=== PATIENT | male | born 1935 | race Caucasian/White ===

== ENCOUNTER 2016-11-10 02:27 | Inpatient (IN) ==
[2016-11-10] MEDS ORDERED: LR 1,000 ML ONE (13:03)
[2016-11-10] MEDS ORDERED: PEPCID ONE (13:03)
[2016-11-10] MEDS ORDERED: REGLAN ONE (13:03)
[2016-11-10] MEDS ORDERED: DIPRIVAN 1% ONE (15:16)
[2016-11-10] MEDS ORDERED: XYLOCAINE-MPF 2% ONE (15:17)
[2016-11-10] MEDS ORDERED: SENSORCAINE 0.5%-EPI 1:200,000 ONE (15:38)
[2016-11-10] MEDS ORDERED: NEOSPORIN G.U. IRRIGANT ONE (15:38)
[2016-11-10] MEDS ORDERED: MORPHINE IV PRN (16:11)
[2016-11-10] MEDS ORDERED: VANCOMYCIN 1 GM/NS 1 GM/250 ML IVPB IV SCH ×2 (16:15→19:00)
[2016-11-10] MEDS ORDERED: ZOFRAN ONE (17:00)
[2016-11-10] MEDS ORDERED: NS 1,000 ML ONE (17:38)
[2016-11-10] MEDS: MORPHINE ONE ×3 (17:40→17:53)
--- NOTE | 2016-11-10 18:22 | OPERATIVE NOTE ---
PROCEDURE DATE: 11/10/2016 PREOPERATIVE DIAGNOSIS: Synovitis with possible infection right total knee. POSTOPERATIVE DIAGNOSIS: Synovitis with possible infection right total knee with arthroscopic lavage and drain placement right total knee. SURGEON: Dread Barnes MD. CONTACT CENTER ENGINEER: Dru Kim RN. ANESTHESIA: General. COMPLICATION: None. PROCEDURE IN DETAIL: This 80-year-old male presents for arthroscopic lavage of the right knee. Risks, benefits and no guarantees were discussed, and he is willing to proceed. He was taken to the operating room and satisfactory anesthesia obtained. The right knee was prepped and draped in usual sterile fashion. A time-out was taken to confirm operative site, procedure, and patient. The leg was wrapped with an Esmarch up to the knee and tourniquet inflated to 350 mmHg. A superior medial inflow portal was established in the suprapatellar pouch through a stab wound and a cannula introduced. A yellowish type fluid was expressed from the joint and this was cultured for aerobic and anaerobic cultures. Standard anterolateral and anteromedial portals were established and arthroscopic lavage of the joint undertaken. The arthroscope was introduced and the total joint replacement was noted to be fully intact without any polyethylene wear. There is mild synovitis along the gutters and suprapatellar pouch. An arthroscopic shaver was used to debride the synovitis to the stable joint capsule. 9 L of irrigant run through the knee after the arthroscopic portion through the inflow and outflow cannulas while the knee was cycled for several range of motion cycles. Afterwards, Hemovac drains were placed through 2 of the portals and the arthroscopic portals closed with 3-0 nylon. The surgical sites were infiltrated with Marcaine for pain control. Tourniquet was released with good return of capillary blood flow and sterile dressings applied. The patient was then recovered from anesthesia and transferred to the recovery room in stable condition. No intraoperative complications were noted. Instrument count and sponge count was correct at the time of closure. cc: Titus Barnes MD
[2016-11-10] MEDS ORDERED: CUBICIN 600 MG in NS 100 ML IV SCH (18:45)
--- NOTE | 2016-11-10 19:44 | CONSULTATION ---
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 RECOMMENDATION: The patient is a little bit hard of hearing. Therefore, I am going to discontinue vancomycin and put the patient on daptomycin. The patient also is on Crestor and I am going to discontinue that because it and daptomycin can interact and cause an increased risk of muscle toxicity. I have ordered a CBC and BMP for tomorrow morning as well. Once we have determined that the patient will definitely need IV antibiotics, I will have a PICC installed. DISCUSSION: The patient had a right total knee arthroplasty performed in 2001. Two years ago, he started having increasing pain and swelling in the knee. He was admitted to surgery today and Dr. Barnes performed a lavage of the knee and put a drain in. Cultures have been obtained but the results are pending. REVIEW OF SYSTEMS: Eyes and ears: The patient's vision is okay. According to the patient's he has decreased hearing. Neck: No meningismus. Respiratory: No cough or shortness of breath. Cardiovascular: No chest pain or palpitations. GI: No nausea, vomiting, or diarrhea. : No dysuria or flank pain. Bones, joints, muscles: Patient did have pain in his knee, which necessitated having a total knee arthroplasty in 2011. Neurologic: No seizures. No motor or sensory deficit. Integument: No rash. PAST MEDICAL HISTORY: Previous hospitalizations and operations: He has had a right total knee arthroplasty in 2011 as mentioned above. He has also had a hernia repair, appendectomy, carotid endarterectomy and placement of coronary artery stents. Medical Diseases: Positive for peripheral vascular disease, diabetes mellitus, hypertension, skin cancer, osteoarthritis and hypothyroidism. Hyperlipidemia and gastroesophageal reflux disease. Infectious disease history: Positive for pneumonia and UTI. FAMILY HISTORY: Positive for hypertension and cancer. SOCIAL HISTORY: Patient lives in [place] with his . He is retired. They do not have any pets at home. ALLERGIES: His chart lists an allergy to penicillin. The patient told me that over 40 years ago, he received penicillin and had a rash. SUBSTANCE USE: The patient has stopped smoking cigarettes in 1990. He does not drink alcoholic beverages or abuse drugs. MEDICATIONS: Home medications include the following: Synthroid, fish oil, ferrous sulfate, vitamin B12, Norvasc, Prilosec, labetalol, Isordil, hydralazine, Neurontin, furosemide, Crestor, aspirin and multivitamins. PHYSICAL EXAMINATION: Vital Signs: Temperature is 98, pulse 74, respirations 18, blood pressure 160/67. The patient weighs 220 pounds. General: This is an obese, elderly male who is in no acute distress. HEENT: He can hear my spoken words and see near objects. No drainage noted from the nose or ears. The patient's tongue did not have any white coating on it. Neck: No meningismus. Lungs: Clear to auscultation. Cardiovascular: Regular heart rate. Peripheral pulses were palpable in the left leg and both arms. The right leg had a large dressing around it. Abdomen: Soft and nontender. Extremities: As mentioned above, the patient has a large dressing on the leg, but dressing is intact. Neurologic: Patient is alert. He can move his extremities. There is no tremor. His sensation is intact to touch. His memory, as regarding his medical history seemed to be intact as well. Integument: No rash noted. Thank you for the consult. cc: MD Titus Westfall MD
[2016-11-10] MEDS: NORCO-10 PO PRN ×2 (20:34→22:58)
[2016-11-10] MEDS: TRANDATE PO SCH (20:34)
[2016-11-10] MEDS: NEURONTIN PO SCH (20:34)
[2016-11-10] MEDS: PRILOSEC PO SCH (20:35)
[2016-11-10] MEDS: ISORDIL PO SCH (20:35)
[2016-11-10] MEDS: PERIDEX MT SCH (20:36)
[2016-11-10] MEDS: SODIUM BICARBONATE PO SCH (20:36)
[2016-11-10] MEDS ORDERED: CRESTOR PO SCH (21:00)
[2016-11-11] MEDS: APRESOLINE PO SCH ×4 (00:25→17:25)
[2016-11-11] MEDS: NS 1,000 ML IV SCH ×4 (01:00→21:31)
[2016-11-11] MEDS: NORCO-10 PO PRN ×2 (03:06→21:32)
[2016-11-11 05:37] LABS: MANUAL DIFF NEEDED? NO
[2016-11-11 05:42] LABS: BASO% 0.4 % (0.0-0.8); EOS% 2.8 % (0.0-10.0); HEMATOCRIT 30.3 % (42.0-52.0); HEMOGLOBIN 9.5 g/dL (14.0-18.0); IMM GRAN# 0.02 X1000 (0.0-0.04); IMM GRAN% 0.3 % (0.0-0.5); LYMPH# 1.45 X1000 (1.2-3.4); MCH 31.7 PG (27-31); MCHC 31.4 g/dL (33-37); MONO# 0.77 X1000 (0.11-0.59); MONO% 10.6 % (1.7-9.3); MPV 8.8 FL (7.4-10.4); NEUT% 65.9 % (42.2-75.2); PLT 439 X1000 (130-400)
[2016-11-11] MEDS ORDERED: XARELTO PO SCH (06:00)
[2016-11-11 06:08] LABS: CALCIUM 8.6 mg/dL (8.8-10.2); POTASSIUM 4.8 mmol/L (3.5-5.1)
[2016-11-11] MEDS: PRILOSEC PO SCH ×2 (06:24→21:33)
[2016-11-11] MEDS: SYNTHROID PO SCH (06:50)
--- NOTE | 2016-11-11 08:03 | PROGRESS NOTE ---
DATE: 11/11/2016 SUBJECTIVE: Mr. Lake is seen today for postop care status post laparoscopic lavage of his infected right total knee. OBJECTIVE: The cultures continue to show no organisms but do show white cells. ASSESSMENT AND PLAN: Dr. Barahona has been consulted for antibiotic and infectious disease treatment. Will plan on keeping him in the hospital today to establish a home IV port and to leave the drains in place. Will plan on discharge tomorrow and removal of the drains at that time. Presently, he is afebrile with stable vital signs. His bandage is clean and dry. There are no signs of DVT or other complication. cc: Titus Barnes MD
[2016-11-11] MEDS: VITAMIN B-12 SL SCH (10:04)
[2016-11-11] MEDS: CENTRUM SILVER PO SCH (10:04)
[2016-11-11] MEDS: LASIX PO SCH (10:04)
[2016-11-11] MEDS: FISH OIL CONCENTRATE PO SCH (10:04)
[2016-11-11] MEDS: ISORDIL PO SCH ×2 (10:04→21:33)
[2016-11-11] MEDS: NEURONTIN PO SCH ×3 (10:04→17:25)
[2016-11-11] MEDS: SODIUM BICARBONATE PO SCH ×2 (10:04→21:31)
[2016-11-11] MEDS: ASPIRIN PO SCH (10:04)
[2016-11-11] MEDS: NORVASC PO SCH (10:05)
[2016-11-11] MEDS: TRANDATE PO SCH ×2 (10:05→21:31)
[2016-11-11] MEDS: FERROUS SULFATE PO SCH (10:05)
[2016-11-11] MEDS: PERIDEX MT SCH ×2 (10:09→21:33)
[2016-11-11] MEDS ORDERED: MAXIPIME 2 GM/NS 2 GM/100 ML IVPB IV SCH (16:00)
--- NOTE | 2016-11-11 16:02 | PROGRESS NOTE ---
DATE: 11/11/2016 PRESENT ILLNESS: The patient is status post lavage of an infected right total knee arthroplasty. MEDICATIONS: The patient is on daptomycin and I have just ordered for today cefepime in addition. PHYSICAL EXAMINATION: Vital Signs: Temperature 98.6 degrees, pulse 61, respirations 18, blood pressure 130/59. General: This is a somewhat ill-appearing, elderly male. He is in no acute distress. Ear, nose, throat: Patient has decreased hearing. Lungs: Clear to auscultation. Cardiovascular: Heart rate is regular. Abdomen: Soft and not tender. Extremities: The patient's right foot has a large dressing around it. The dressing is intact. LAB AND X-RAY: Creatinine is 2.6. GFR is 24. Thus far the knee culture is sterile. The fluid from the patient's knee on Gram stain showed white cells but no bacteria and as mentioned above culture is negative. Dr. Barnes told me that approximately a week ago he el synovial fluid from the patient's knee and there was an approximate white cell count of 50,000. ASSESSMENT AND PLAN: Dr. Barnes and I have discussed with the patient and his the fact that we feel that the patient's knee is infected and should be treated with IV antibiotics for 6 weeks even if the culture remains negative. During the operative report Dr. Barnes noticed that there was some purulence. Also clinically it appeared that the patient has an infected knee. I have requested that a Avila catheter be placed rather than a PICC because the patient has end-stage renal disease. Also, I put in a consultation for Dr. Nash to put in the patient's Avila catheter. I have also put in a consultation for [facility] to supply the patient's home IV antibiotic. I told the patient and his that if they do not have good coverage for the antibiotics that Mr. Lake will be able to come to the outpatient clinic daily for his antibiotics. COMORBIDITIES: He has decreased hearing. He also has end-stage renal disease. He also has diabetes mellitus and peripheral vascular disease. cc: MD Titus Westfall MD
[2016-11-11] MEDS: MORPHINE ONE (21:40)
[2016-11-12] MEDS: APRESOLINE PO SCH ×2 (01:31→10:52)
[2016-11-12] MEDS: NORCO-10 PO PRN (04:18)
[2016-11-12] MEDS: SYNTHROID PO SCH ×2 (05:32→06:34)
[2016-11-12] MEDS: PRILOSEC PO SCH ×2 (05:32→06:34)
[2016-11-12 05:58] LABS: HEMATOCRIT 30.7 % (42.0-52.0); HEMOGLOBIN 9.9 g/dL (14.0-18.0)
--- NOTE | 2016-11-12 07:31 | PROGRESS NOTE ---
DATE: 11/12/2016 PRESENT ILLNESS: The patient is status post lavage of an infected right total knee arthroplasty. MEDICATIONS: The patient is day 2 of the patient being on both daptomycin and cefepime. PHYSICAL EXAMINATION: Vital Signs: Temperature is 98.8 degrees, pulse 65, respirations 24, blood pressure 156/72. General: This is an obese, somewhat ill-appearing, elderly male. He is in no acute distress. HEENT: Patient has decreased hearing. He can see near objects. No drainage was noted from the nose or ears. Lungs: Clear to auscultation. Cardiovascular: Heart rate is regular. Abdomen: Soft and not tender. Extremities: The patient's right knee has a large dressing around it. The dressing is intact. LAB AND X-RAY: The only new lab is in the hemoglobin and hematocrit of 9.9 and 30.7. The patient's cultures taken at the time of surgery from the patient's knee, all the cultures are negative thus far. The Gram stain did not show the presence of any organism. There is no new radiographic study. ASSESSMENT AND PLAN: 1. The patient does have infection of his right total knee arthroplasty. The plan is to continue both of his antibiotics, namely daptomycin and cefepime will be continued. The doses of both antibiotics has been modified because of the patient's end-stage renal disease. Initially [facility] was consulted to supply the patient's home IV antibiotic; however, [facility] is not a participant in the patient's insurance. Therefore I have put a consult in for [facility] to see the patient. I also should mention that today the patient is to get his Avila catheter placed. 2. Continue the patient's current antibiotics for a 6 week treatment course. Also [facility] was consulted to supply the patient's home IV antibiotic because [facility] is not a participant in the insurance the patient has. My plan is to see the patient in the office at 3 weeks and then again at 6 weeks, at which time we will stop his antibiotic and remove his PICC. I have asked the microbiology laboratory to send me the final results of the patient's cultures. COMORBIDITIES: Include having osteomyelitis and being elderly. End-stage renal disease, diabetes mellitus, hypertension, skin cancer, and peripheral vascular disease, along with gastroesophageal reflux disease. cc: MD Titus Westfall MD
[2016-11-12] MEDS ORDERED: DIPRIVAN 1% ONE (07:32)
[2016-11-12] MEDS ORDERED: NS 250 ML ONE (08:26)
[2016-11-12] MEDS ORDERED: XYLOCAINE 1%/EPI 1:100,000 ONE (08:28)
--- NOTE | 2016-11-12 10:07 | OPERATIVE NOTE ---
PROCEDURE DATE: 11/12/2016 PREOPERATIVE DIAGNOSIS: Infected right total knee arthroplasty. POSTOP DIAGNOSIS: Infected right total knee arthroplasty. PROCEDURE: Insertion of Avila catheter with fluoroscopic and ultrasound guidance. SURGEON: Feliz Nash MD. ANESTHESIA: General. ESTIMATED BLOOD LOSS: 10 mL. COMPLICATIONS: None apparent. FINDINGS: The right internal jugular vein was visualized with ultrasound. It was compressible, patent, and without thrombus. The wire and subsequently the catheter were found to be in the right atrium and the tip of the catheter was positioned to the superior vena cava right atrial junction. This was done with fluoroscopy. TECHNIQUE: The patient was brought to the operating room and placed supine on the table. General anesthesia was induced. He was prepped and draped in usual sterile fashion. Quarter percent Marcaine with epinephrine was used to anesthetize our incisions. The internal jugular vein was found on the ultrasound in the right neck. The skin over the vein was anesthetized with the Marcaine. The skin was incised with a 11 blade. The vein was accessed under ultrasound guidance with 1 stick. The wire passed through the needle into the vein. The wire was confirmed to be in atrium with fluoroscopy. The wire was fixed to the drape with a hemostat. A counterincision was made below the right clavicle. The subcutaneous tissues were anesthetized with Marcaine. The catheter was tunneled subcutaneously from the lower incision out through the neck incision. The dilator and sheath were passed over the wire. The wire and dilator were removed. The catheter was passed into the sheath. The sheath was removed. The tip of the catheter was positioned to the appropriate junction with fluoroscopy. A 3-0 Polysorb subcuticular stitch was used to close the neck incision. The exit site incision was closed with a 3-0 nylon which was used to secure the catheter to the skin as well. The catheter did aspirate blood easily and was flushed with saline easily. A cap was placed on the end of the catheter. There were no apparent complications. cc: MD Titus Leahy MD
[2016-11-12 10:13] VITALS: BP 171/68
--- NOTE | 2016-11-12 10:23 | CONSULTATION ---
DATE OF CONSULTATION: 11/11/2016 REASON FOR CONSULTATION: Avila catheter placement for [facility] intravenous antibiotics. HISTORY OF PRESENT ILLNESS: This is an 80-year-old male who is status post right total knee arthroplasty in 2011. He has had increasing pain and swelling in the knee. Dr. Barnes recently washed the knee out and placed a drain. The fluid had an infected appearance, although the culture has been negative so far, and given his chronic kidney disease, a PICC line is not desirable. The plans are to treat this with at least 6 weeks or more of daptomycin. PAST MEDICAL HISTORY: Peripheral vascular disease, diabetes, hypertension, history of skin cancer, osteoarthritis, hypothyroidism, hyperlipidemia, gastroesophageal reflux disease. PAST SURGICAL HISTORY: Right total knee arthroplasty, hernia repair, appendectomy, carotid endarterectomy, coronary stents. FAMILY HISTORY: Hypertension and cancer. SOCIAL HISTORY: He is retired and lives with his . He stopped smoking in 1990. No alcohol or illicit drug use. HOME MEDICATIONS: Synthroid, ferrous sulfate, vitamin B12, Norvasc, Prilosec, labetalol, Isordil, hydralazine, Neurontin, furosemide, Crestor, aspirin, multivitamins. ALLERGIES: Penicillin. REVIEW OF SYSTEMS: Ten systems reviewed and negative except as noted above. PHYSICAL EXAMINATION: Vital Signs: Temperature 98.6 degrees, pulse 61, respirations 12, blood pressure 130/59. General: A well-developed, well-nourished male, in no distress, who looks his stated age. HEENT: Normocephalic, atraumatic. Extraocular muscles intact. Pupils equal, round, reactive to light. Sclerae anicteric. Neck: Supple. No thyromegaly. Cardiovascular: Regular rate and rhythm. Respiratory: Bilateral equal breath sounds. No work of breathing. Gastrointestinal: Soft, nontender, nondistended. No organomegaly or mass. Skin: Warm and dry. No rash. The right knee did have a large dressing around it. Musculoskeletal: He moves all extremities. The right leg is weaker secondary to pain. Neurologic: Alert and oriented x4. Cranial nerves 2 through 12 grossly intact. LABORATORY DATA: White cell count 7, hemoglobin 9.5, hematocrit 30.3, platelet count 439,000. BUN 42, creatinine 2.6, potassium 4.8. ASSESSMENT AND PLAN: An 80-year-old male with a right total knee arthroplasty infection. He is planned for intravenous antibiotics. He needs a [facility] central venous access. A peripherally inserted central catheter line is not a good option secondary to his chronic kidney disease. We will place a Avila catheter tomorrow. I discussed the risks, benefits, and alternatives with him including bleeding, infection, DVT, pneumothorax, catheter malfunction, and other imponderables. He understands and agrees to proceed. cc: MD Titus Leahy MD
--- NOTE | 2016-11-12 10:30 | Diag Imaging Result Doc PS360 ---
EXAM: CHEST-PORTABLE HISTORY: status post villegas catheter TECHNIQUE: Portable upright AP COMPARISON: 02/10/2016 FINDINGS: There is a right jugular line on the current exam. The tip overlies the junction of the superior vena cava and right atrium. No pneumothorax. The heart remains mildly prominent. The vessels are not distended. No pneumonia. No pleural effusions identified. IMPRESSION: Right Jugular line in good position with no postprocedural pneumothorax. Electronically signed by Saul Denise 11/12/2016 10:28 AM
[2016-11-12] MEDS: SODIUM BICARBONATE PO SCH (10:52)
[2016-11-12] MEDS: CENTRUM SILVER PO SCH (10:52)
[2016-11-12] MEDS: ASPIRIN PO SCH (10:52)
[2016-11-12] MEDS: TRANDATE PO SCH (10:52)
[2016-11-12] MEDS: NORVASC PO SCH (10:52)
[2016-11-12] MEDS: FERROUS SULFATE PO SCH (10:52)
[2016-11-12] MEDS: VITAMIN B-12 SL SCH (10:52)
[2016-11-12] MEDS: LASIX PO SCH (10:52)
[2016-11-12] MEDS: PERIDEX MT SCH (10:53)
[2016-11-12] MEDS: NEURONTIN PO SCH (10:53)
[2016-11-12] MEDS: FISH OIL CONCENTRATE PO SCH (10:53)
[2016-11-12] MEDS: ISORDIL PO SCH (10:53)
--- NOTE | 2016-11-12 14:07 | DISCHARGE SUMMARY ---
ADMISSION DATE: 11/10/2016 DISCHARGE DATE: 11/12/2016 DATE OF ADMISSION: 11/10/2016. DATE OF DISCHARGE: 11/12/2016. ADMITTING DIAGNOSIS: Infected right total knee. ADDITIONAL DIAGNOSES: 1. History of diabetes. 2. Hypertension. 3. Coronary disease. 4. Kidney disease. DISCHARGE DIAGNOSES: 1. History of diabetes. 2. Hypertension. 3. Coronary disease. 4. Kidney disease. HOSPITAL COURSE: This is an 80-year-old male with a possible hematogenous infection of his right total knee presents for an arthroscopic lavage. The patient underwent arthroscopic lavage of the knee and placement of 2 drains. Postoperatively, Dr. Barahona was consulted for orthopedic management and IV antibiotics selection. He was placed on appropriate IV antibiotics for his medical conditions. A Avila catheter is in place by Dr. Nash for home IV access. At the present time, he is afebrile with stable vital signs. His cultures are not growing any organism, but he did have a high white count. He is discharged home with home IV antibiotics per Dr. Barahona. We will see him back Wednesday for a followup. DISCHARGE MEDICATIONS: Include his home medicines consisting of: 1. Actos daily. 2. Amlodipine 5 mg daily. 3. Baby aspirin a day. 4. 2 mg daily. 5. Carvedilol 25 mg daily. 6. Vitamin supplementation. 7. Crestor 10 mg daily. 8. Gabapentin 300 mg. 9. Glucosamine chondroitin. 10. 100 mg daily. 11. Lisinopril 30 mg daily. 12. Metformin ER 500 mg daily. 13. [place] 5, 1-2 every 4-6 hours p.r.n. pain. 14. IV antibiotics consistent with Dr. Barahona' discharge instructions. 15. [place] 5 as needed for pain. cc: Titus Barnes MD
[2016-11-12] MEDS ORDERED: MAXIPIME 2 GM/NS 2 GM/100 ML IVPB IV SCH (17:00)
[2016-11-12] MEDS ORDERED: CUBICIN 600 MG in NS 100 ML IV SCH (22:00)
== END 2016-11-12 12:46 | disposition home health service (06) ==
LOC: SURHOLD 02:27 → EDSTATUS 15:30 → 4N 17:37
PROVIDERS: ADMIT Orthopaedic Surgery Adult Reconstructive Orthopaedic Surgery; ATTEND Orthopaedic Surgery Adult Reconstructive Orthopaedic Surgery

== ENCOUNTER 2016-11-24 03:25 | Inpatient (IN) ==
[2016-11-24] MEDS ORDERED: VANCOMYCIN 1 GM/NS 1 GM/250 ML IVPB ONE (11:29)
[2016-11-24] MEDS ORDERED: LR 1,000 ML ONE (11:29)
[2016-11-24] MEDS ORDERED: PEPCID ONE (11:29)
[2016-11-24] MEDS ORDERED: REGLAN ONE (11:29)
[2016-11-24] MEDS ORDERED: TOBRAMYCIN XX ONE (12:30)
[2016-11-24] MEDS ORDERED: CYKLOKAPRON 1,000 MG/NS 2,000 MG/200 ML IVPB ONE (12:33)
[2016-11-24] MEDS ORDERED: VANCOMYCIN ONE (12:33)
[2016-11-24] MEDS ORDERED: DIPRIVAN 1% 500 MG/50 ML BOTTLE ONE (12:37)
[2016-11-24] MEDS ORDERED: XYLOCAINE-MPF 2% ONE (12:47)
[2016-11-24] MEDS ORDERED: NEOSPORIN G.U. IRRIGANT ONE ×2 (12:47→13:04)
[2016-11-24] MEDS ORDERED: ZOFRAN ONE ×2 (12:47→14:25)
[2016-11-24] MEDS ORDERED: FENTANYL ONE (12:48)
[2016-11-24] MEDS ORDERED: VERSED ONE (12:48)
[2016-11-24] MEDS ORDERED: NAROPIN 0.5% ONE (13:29)
[2016-11-24] MEDS ORDERED: DECADRON ONE (14:31)
--- NOTE | 2016-11-24 15:09 | OPERATIVE NOTE ---
PROCEDURE DATE: 11/24/2016 PREOP DIAGNOSIS: Infected right total knee. POSTOP DIAGNOSIS: Infected right total knee. PROCEDURE: Open debridement, irrigation with polyethylene exchange and Bactisure irrigation of the joint. SURGEON: Dread Barnes MD. CARD HANGER: Zeke Garg. ANESTHESIA: Spinal. COMPLICATION: None. 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 Risks, benefits and no guarantees were discussed. He is willing to proceed. He was taken to the operating room and satisfactory anesthesia obtained. The right leg was prepped and draped in usual sterile fashion. A time-out was taken to confirm operative site, procedure, and patient. The leg was then wrapped with an Esmarch. Tourniquet inflated to 350 mmHg. The previous anterior incision over the midline was utilized and a medial arthrotomy made. Cultures were taken for both aerobic and anaerobic cultures. Any synovium which was inflamed was debrided about the knee. There is no obvious pusy or purulent discharge but cloudy yellow fluid. The synovium was debrided over the suprapatellar pouch, anterior capsule, posterior capsule and gutters. Polyethylene was removed with a osteotome and the femoral and tibial implant irrigated with 3 L of irrigant. After completion of the mechanical debridement the wound was irrigated with 1 L of Biomet Bactisure solution to break down any bio film. This was then irrigated again with 3 L of irrigant. A similar size 5, 13 mm thick polyethylene was then placed back in the tibial tray with the new implant and securely seated. The knee was then taken through range of motion with good stability and midline patellar tracking. Tobramycin vancomycin bioabsorbable beads were then implanted into the joint and a Hemovac drain placed. The arthrotomy was closed with interrupted #1 Vicryl, the subcutaneous with 2-0 Vicryl and the skin with skin siddharth. Sterile dressing completed the closure and the patient was recovered from anesthesia and transferred to the recovery room in stable condition. No intraoperative complications were noted. Instrument count and sponge count was correct at time of closure. cc: Titus Barnes MD
[2016-11-24] MEDS ORDERED: NS 1,000 ML ONE (15:35)
[2016-11-24] MEDS: MORPHINE ONE ×3 (16:26→16:42)
--- NOTE | 2016-11-24 17:43 | PROGRESS NOTE ---
DATE: 11/24/2016 is right total knee. He is afebrile with stable vital signs. He is relatively comfortable. Toes are up and downgoing. There is good range of motion. Dressing is dry. At the present time he appears to be stable. cc: Titus Barnes MD
[2016-11-24] MEDS ORDERED: NS 1,000 ML IV SCH (17:45)
[2016-11-24] MEDS ORDERED: ASPIRIN PO SCH (21:00)
[2016-11-24] MEDS ORDERED: PERIDEX MT SCH (21:00)
[2016-11-24] MEDS: ISORDIL PO SCH (21:00)
[2016-11-24] MEDS ORDERED: XALATAN 0.005% OPH SOLN BOTH EYES SCH (21:00)
[2016-11-24] MEDS: APRESOLINE PO SCH (21:00)
[2016-11-24] MEDS: NORCO-10 PO PRN (21:32)
[2016-11-24] MEDS: SODIUM BICARBONATE PO SCH (21:33)
[2016-11-24] MEDS: CRESTOR PO SCH ×2 (21:33→22:35)
[2016-11-24] MEDS: TRANDATE PO SCH (21:33)
[2016-11-24] MEDS: PRILOSEC PO SCH (21:33)
[2016-11-25 00:13] LABS: URINE SOURCE CATH
[2016-11-25 00:49] LABS: BILIRUBIN URINE NEGATIVE (NEGATIVE); BLOOD URINE MODERATE (NEGATIVE); COLOR YELLOW; GLUCOSE URINE 200 mg/dL (NEGATIVE); LEUKOCYTES URINE NEGATIVE (NEGATIVE); NITRITE URINE NEGATIVE (NEGATIVE); PROTEIN URINE 100 mg/dL (NEGATIVE); SP GRAVITY URINE 1.017; TURBIDITY URINE HAZY (CLEAR); UROBILINOGEN URINE NORMAL (NORMAL)
[2016-11-25 00:52] LABS: UR EPITHELIAL CELLS <10 /HPF (<10); URINE BACTERIA NEGATIVE /HPF; URINE CULTURE NEEDED? YES; URINE MICRO REVIEW NEEDED? YES; URINE RBC <10 /HPF (<10)
[2016-11-25 01:15] LABS: URINE CASTS GRANULAR PRESENT
[2016-11-25] MEDS: NORCO-10 PO PRN ×2 (06:09→10:50)
[2016-11-25 06:40] LABS: HEMATOCRIT 31.2 % (42.0-52.0); HEMOGLOBIN 9.9 g/dL (14.0-18.0)
[2016-11-25] MEDS ORDERED: CUBICIN 500 MG in NS 100 ML IV SCH ×2 (07:30→08:00)
--- NOTE | 2016-11-25 07:33 | DISCHARGE SUMMARY ---
ADMISSION DATE: 11/24/2016 DISCHARGE DATE: 11/25/2016 ADMITTING DIAGNOSIS: Septic right total knee. ADDITIONAL DIAGNOSES: 1. History of diabetes. 2. Congestive heart failure. 3. Hypertension. 4. Renal disease. DISCHARGE DIAGNOSES: 1. Septic right total knee. 2. History of diabetes. 3. Congestive heart failure. 4. Hypertension. 5. Renal disease. ADMITTING HISTORY AND HOSPITAL COURSE: This 81-year-old male was admitted to the hospital for open debridement and irrigation of infected right knee. He underwent open debridement, open synovectomy, polyethylene exchange, and irrigation of the joint space with Bactisure irrigant. Postoperatively, he has been placed on IV antibiotics by Dr. Barahona. He is discharged home today for outpatient followup and drain removal. He is to continue with his previous medications. I will see him back tomorrow for bandage change and drain removal. At the present time, he is afebrile with stable vital signs. DISCHARGE MEDICATIONS: Include Actos, amlodipine, aspirin daily, Bactrim, bumetanide, carvedilol, Centrum, Crestor, , fish oil, gabapentin, glucosamine, Januvia, lisinopril, metformin, [place], vitamin supplementation, and IV antibiotics per Dr. Barahona. cc: Titus Barnes MD
[2016-11-25 07:39] VITALS: BP 160/74
--- NOTE | 2016-11-25 08:00 | PROGRESS NOTE ---
DATE: 11/25/2016 HISTORY OF PRESENT ILLNESS: The patient has an infected right total knee arthroplasty. Despite having irrigation done recently, the knee continues to be swollen. Yesterday, he had open debridement and polyethylene exchange and irrigation with Bactisure of the patient's right knee. Cultures from the knee are pending. MEDICATIONS: The patient is receiving cefepime and daptomycin. The doses have been modified because of the patient's renal failure. PHYSICAL EXAMINATION: Vital Signs: Temperature is 98 degrees, pulse 62, respirations 20, and blood pressure 147/65. Generally: This is an elderly male who is in no acute distress. Lungs: Clear to auscultation. Cardiovascular: Regular heart rate. Thorax: The patient has a Avila catheter in place on the right side. The site is not erythematous or swollen. The patient has a large dressing around his right knee. The dressing is intact. ASSESSMENT AND PLAN: The patient has an infected right total knee arthroplasty. He has undergone polyethylene exchange and irrigation of the joint. I am renewing the patient's daptomycin and cefepime to be taken intravenously. LABORATORY AND X-RAY: There is no new x-ray. The patient's hemoglobin and hematocrit is 9.9 and 31.2. Creatinine is 2.4. GFR is 26. The patient's hemoglobin and hematocrit is 9.9 and 31.2 respectively. The cultures are pending from the knee. Gram stain of the material removed from the knee and showed no bacteria. ASSESSMENT AND PLAN: The patient has an infected right total knee arthroplasty. The plan now is to treat the patient for 6 weeks with a combination of daptomycin and cefepime pending the culture results from the knee. Nutritional parenteral home care will be supplying the patient's home antibiotics. The patient's comorbidities include end stage renal disease, diabetes mellitus, peripheral vascular disease and paraesophageal reflux disease. I will be seeing the patient in my office at 3 weeks and then again at 6 weeks. At the 6 week treatment then, the antibiotics most likely will be discontinued. cc: MD Titus Westfall MD MTDD
[2016-11-25] MEDS ORDERED: CENTRUM SILVER PO SCH (09:00)
[2016-11-25] MEDS ORDERED: VITAMIN B-12 SL SCH (09:00)
[2016-11-25] MEDS ORDERED: FISH OIL CONCENTRATE PO SCH (09:00)
[2016-11-25] MEDS ORDERED: FERROUS SULFATE PO SCH (09:00)
[2016-11-25] MEDS ORDERED: LASIX PO SCH (09:00)
[2016-11-25] MEDS ORDERED: NORVASC PO SCH (09:00)
[2016-11-25] MEDS ORDERED: MAXIPIME 2 GM/NS 2 GM/100 ML IVPB IV SCH (09:00)
[2016-11-25] MEDS ORDERED: SYNTHROID PO SCH (09:00)
[2016-11-25] MEDS ORDERED: NEURONTIN PO SCH (09:00)
[2016-11-25] MEDS: APRESOLINE PO SCH (11:14)
[2016-11-25] MEDS: ISORDIL PO SCH (11:16)
[2016-11-25] MEDS: SODIUM BICARBONATE PO SCH (11:16)
[2016-11-25] MEDS: PRILOSEC PO SCH (11:17)
[2016-11-25] MEDS: TRANDATE PO SCH (11:17)
== END 2016-11-25 13:11 | disposition home health service (06) ==
LOC: SURHOLD 03:25 → 4N 16:03
PROVIDERS: ADMIT Orthopaedic Surgery Adult Reconstructive Orthopaedic Surgery; ATTEND Orthopaedic Surgery Adult Reconstructive Orthopaedic Surgery